=== PATIENT | male | born 1980 | race Caucasian/White ===

== ENCOUNTER 2018-12-11 17:49 | Observation (INO) | payer OTHER ==
[~2018-12-11] VITALS: Ht 185.4 cm; Wt 95.3 kg
--- NOTE | 2018-12-11 17:49 | NUR ---
Patient [facility] accompanied by [place] [employer], triaged by RN and waiting for an available bed.
[2018-12-11 17:50] VITALS: BP 101/60
--- NOTE | 2018-12-11 17:58 | NUR ---
Patient transferred to bed 11. RN re-evaluating patient at bedside.
--- NOTE | 2018-12-11 18:16 | NUR ---
PT BROUGHT IN BY EMS AND [place] [employer] WITH C/O PAIN IN HIS FACE, PT STATES "MY FACE HURTS" AND RATES PAIN 3/10 AT THIS TIME. PT SWALLOWED HEROIN THAT WAS WRAPPED IN CELLOPHANE WHILE BEING CHASED ON FOOT BY PD. PT DENIES ABD PAIN, CP, AND SOB AT THIS TIME. VSS. PT GIVEN 0.4 NITRO AND 324 ASPIRN IN THE FIELD. ER MD TO SEE PT. AUGUSTO
--- NOTE | 2018-12-11 18:53 | NUR ---
PT RESTING AT BEDSIDE. ASSISTED PT WITH REPOSITIONING FOR COMFORT.
--- NOTE | 2018-12-11 19:19 | NUR ---
Pt report given to Caridad VASQUEZ. Transfer of care at this time.
--- NOTE | 2018-12-11 19:20 | NUR ---
BEDSIDE REPORT RECEIVED FROM CHRISTINA AVENDANO/CHRISTINA MOHAMUD. PT IS SLEEPING; AROUSABLE TO LIGHT SHAKING/VERBAL STIMULI. VSS AT THIS TIME. PT ON 2 LPM O2. BOLUS RUNNING.
--- NOTE | 2018-12-11 19:31 | NUR ---
XRAY AT BEDSIDE.
--- NOTE | 2018-12-11 19:33 | NUR ---
PT TAKEN TO CT VIA WC.
--- NOTE | 2018-12-11 19:51 | NUR ---
PHLEB DRAWING LABS AT BEDSIDE.
[2018-12-11 20:25] LABS: HEMATOCRIT 45.7 % (36-52); HEMOGLOBIN 14.8 g/dL (12.0-18.0); MEAN CORPUSCULAR HEMOGLOBIN 31 pg (27-31); MEAN CORPUSCULAR HGB CONC 32 g/dL (33-37); PLATELET COUNT (AUTO) 268 K/uL (140-450); RED BLOOD CELL COUNT(AUTO) 4.86 MIL/uL (4.20-6.10); WHITE BLOOD COUNT (AUTO) 18.5 K/uL (4.8-10.8)
[2018-12-11 20:42] LABS: ANION GAP 11.7 (8-16); CARBON DIOXIDE 27.6 mmol/L (21-32); CREATININE 1.1 mg/dL (0.7-1.3); POTASSIUM 3.3 mmol/L (3.5-5.1)
[2018-12-11 20:48] LABS: ALBUMIN 3.5 g/dL (3.4-5.0); TOTAL BILIRUBIN 0.6 mg/dL (0.0-1.0)
[2018-12-11 20:49] LABS: LYMPHOCYTES % (MANUAL) 6 % (20-46); MONOCYTES % (MANUAL) 3 % (5-12)
[2018-12-11 20:50] LABS: BASOPHILS % (MANUAL) 0 % (0-2); EOSINOPHILS % (MANUAL) 0 % (0-4)
--- NOTE | 2018-12-11 20:50 | NUR ---
PT SLEEPING COMFORTABLY. AROUSABLE TO VERBAL STIMULI. PT PLACED BACK ON O2 @ 2 LPM DUE TO SPO2 <94%. 97% ON 2 LPM.
--- NOTE | 2018-12-11 21:12 | NUR ---
DR. LEAHY EVALUATING AT BEDSIDE.
--- NOTE | 2018-12-11 21:57 | NUR ---
[facility] PROVIDED CLINICAL INFORMATION. PT IS AUTHORIZED FOR OBSERVATION.
--- NOTE | 2018-12-11 22:00 | NUR ---
PT IS LETHARGIC. SLURRED, MUMBLED SPEECH NOTED. VSS. SKIN PINK, WARM, DRY. BREATHING EVEN, UNLABORED.
[2018-12-11 22:32] VITALS: BP 118/74
--- NOTE | 2018-12-11 22:32 | NUR ---
ADMITTED 38 YEAR OLD MALE WITH ADMITTING DIAGNOSIS OF POLYSUBSTANCE ABUSE, WITHDRAWAL. CAME FROM ED VIA WHEELCHAIR. ALERT AND ORIENTED X 4. DENIES PAIN NOR DISCOMFORT. PERIPHERAL IV ON LEFT HAND 18G ON SALINE LOCK. PATENT AND INTACT. SKIN ASSESSMENT DONE. NOTED WITH ABRASION ON RIGHT CHEEK AND LEFT FOREHEAD. ORIENTED TO HOSPITAL ROUTINE, ENVIRONMENT AND CALL LIGHT USE. SAFETY ENSURED. BED IN LOW POSITION. CALL LIGHT WITHIN EASY REACH. WILL CONTINUE TO MONITOR.
--- NOTE | 2018-12-11 22:32 | NUR ---
Patient will be admitted to care of Dr. Mason. Admited to MS. Will go to room 120B. Belongings list completed. Report to CHRISTINA Saxena.
[2018-12-11] MEDS ORDERED: ZOLPIDEM 5 MG TAB PO PRN (23:20)
[2018-12-11] MEDS ORDERED: ONDANSETRON 4 MG/2 ML VIAL IM/IVP PRN (23:20)
[2018-12-11] MEDS ORDERED: MORPHINE SULFATE 2 MG/ML SYR IVP PRN (23:20)
[2018-12-11] MEDS ORDERED: HYDROcodone/APAP 5/325 MG 1 TAB TAB PO PRN (23:20)
[2018-12-11] MEDS ORDERED: ACETAMINOPHEN 325 MG TAB PO PRN (23:20)
[2018-12-11] MEDS ORDERED: DOCUSATE SODIUM 100 MG GELCAP PO PRN (23:20)
[2018-12-11] MEDS ORDERED: LORazepam 2 MG/ML VIAL IM/IVP PRN (23:20)
[2018-12-12] MEDS ORDERED: NACL 0.9% 1,000 ML IV SCH
[2018-12-12 00:08] LABS: CHOL/HDL RATIO 3.4 (1-4.5)
[2018-12-12 00:10] LABS: MAGNESIUM 2.2 mg/dL (1.8-2.4); PHOSPHORUS 2.5 mg/dL (2.5-4.9); PROTHROMBIN TIME 9.9 secs (10.8-13.4); THYROID STIMULATING HORMONE 0.35 uIU/mL (0.34-3.74)
--- NOTE | 2018-12-12 00:25 | NUR ---
PATIENT ASLEEP IN BED. NO DISTRESS NOTED. VISIBLE CHEST RISE AND FALL NOTED. AROUSABLE TO VOICE. WILL CONTINUE TO MONITOR.
[2018-12-12] MEDS ORDERED: POTASSIUM CHLORIDE 10 MEQ TABER PO SCH (01:00)
--- NOTE | 2018-12-12 02:25 | NUR ---
ROUNDS DONE. PATIENT ASLEEP IN BED. VISIBLE CHEST RISE AND FALL NOTED. SAFETY ENSURED. WILL CONTINUE TO MONITOR.
--- NOTE | 2018-12-12 04:00 | NUR ---
PT PT SAID HE WANTS TO GO HOME. CALLED DR. FRITZ AND SAID HE WILL COME TO TALK TO PT.
--- NOTE | 2018-12-12 04:10 | NUR ---
DR. BENSON CAME AND TALKED TO PT. EXPLAINED THE RISK OF GOING HOME AGAINST MEDICAL ADVICE. PT STILL WANTS TO GO AND SIGNED THE AMA FORM .IV DISCONTINUED ,ID BAND REMOVED. LEFT AMBULATORY IN STABLE CONDITION WITH ALL PERSONAL CLOTHINGS/SHOES ON. CHRISTINA GONZALEZLIP CUTTER AND CHRISTINA ZUNIGA DIRECTOR ORANGE AWARE.
== END 2018-12-12 04:30 | disposition left against medical advice (07) ==
LOC: MED 17:49 → MTU 22:07
PROVIDERS: ADMIT General Practice; ATTEND General Practice
DX: T40.1X1A Poisoning by heroin, accidental (unintentional), initial encounter (principal); I95.9 Hypotension, unspecified; E87.6 Hypokalemia; E83.51 Hypocalcemia; D72.829 Elevated white blood cell count, unspecified; F17.210 Nicotine dependence, cigarettes, uncomplicated; F19.10 Other psychoactive substance abuse, uncomplicated; X58.XXXA Exposure to other specified factors, initial encounter; Y93.89 Activity, other specified; Y92.89 Other specified places as the place of occurrence of the external cause
CPT/HCPCS: 36415; 71045; 74176; 80053; 80061; 83036; 83690; 83735; 83880; 84100; 84443; 84484; 85025; 85610; 85730; 87081; 93005; 96360; 96361; 99285; G0378; J7030; Q0092; Q0163